=== PATIENT | male | born 1935 | race Two or more races ===

== ENCOUNTER 2023-02-05 15:49 | Emergency (ER) | payer OTHER ==
[~2023-02-05] VITALS: Ht 172.7 cm; Wt 63.5 kg
[2023-02-05] MEDS ORDERED: TOPROL XL25 M1 (16:05)
[2023-02-05] MEDS ORDERED: GLUMETZA500 MG (16:05)
[2023-02-05] MEDS ORDERED: GLIMEPIRIDE1 M1 (16:05)
[2023-02-05] MEDS ORDERED: COZAAR25 MG (16:06)
[2023-02-05] MEDS ORDERED: AMLODIPINE-OLM1 EAC2 (16:06)
[2023-02-05 17:16] LABS: HEMATOCRIT 30.8 % (39.0-48.0); HEMOGLOBIN 10.5 g/dL (13-16.00); MEAN CELL VOLUME 94.3 fL (80.0-100.00); PLATELET COUNT 264 K/uL (150-450); RED BLOOD COUNT 3.27 M/uL (4.00-6.00); RED CELL DISTRIBUTION WIDTH 14.1 % (11.5-14.5)
== END 2023-02-05 18:06 | disposition home or self-care (01) ==
LOC: ER 15:50
PROVIDERS: General Practice
DX: J40 Bronchitis, not specified as acute or chronic (principal); R05.8 Other specified cough; Z88.0 Allergy status to penicillin; Z20.822 Contact with and (suspected) exposure to COVID-19